=== PATIENT | female | born 1940 | race Hispanic/Latino ===

== ENCOUNTER 2017-10-15 11:59 | Observation (INO) | payer OTHER ==
[2017-10-14 11:57] LABS: BASOPHILS % 0.1 % (0.0-1.0); EOSINOPHILS # (AUTO) 0.2 (0.0-0.4); EOSINOPHILS % 2.4 % (0.0-6.0); HEMATOCRIT 35.5 % (34.2-44.1); HEMOGLOBIN 11.2 g/dL (12.0-16.0); LYMPHOCYTES # (AUTO) 2.3 (1.0-3.2); LYMPHOCYTES % 29.3 % (18.0-39.1); MEAN CORPUSCULAR HEMOGLOBIN 28.9 pg (28-32); MEAN CORPUSCULAR HGB CONC 31.5 g/dL (31-35); MEAN CORPUSCULAR VOLUME 91.5 fL (81-99); MONOCYTES # (AUTO) 0.5 (0.2-0.8); NEUTROPHILS # (AUTO) 4.8 (2.1-6.9); NEUTROPHILS % 61.8 % (38.7-80.0); PLATELET COUNT 208 x10e3/uL (140-360); RED BLOOD COUNT 3.88 x10e6/uL (3.6-5.1); RED CELL DISTRIBUTION WIDTH 16.5 % (11.7-14.4)
[2017-10-14 12:05] LABS: INR 1.02; PROTHROMBIN TIME 13.9 seconds (11.9-14.5)
[2017-10-14 12:14] LABS: ALBUMIN 3.4 g/dL (3.5-5.0); ALBUMIN/GLOBULIN RATIO 0.8 (0.8-2.0); ANION GAP 12.6 mmol/L (8-16); CALCIUM 9.4 mg/dL (8.4-10.2); CHOL/HDL RATIO 3.9 (3.0-3.6); CREATININE, SERUM 1.2 mg/dL (0.57-1.11); POTASSIUM 5.6 mmol/L (3.5-5.1)
[~2017-10-15] VITALS: Ht 144.8 cm; Wt 52.2 kg
[~2017-10-15 11:59] MED LIST: AMIODARONE HCL200 MG PO; AMLODIPINE BESYL5 MG PO; ATORVASTATIN CA20 MG PO; CLOPIDOGREL75 MG PO; FUROSEMIDE40 MG PO; INSULIN ASPART SQ; JANUVIA100 MG PO; LOSARTAN POTASS25 MG PO; METOPROLOL SUCC50 MG PO; ONDANSETRO4 MG/UDTAB PO; PANTOPRAZOLE SO40 MG PO
[2017-10-15] MEDS ORDERED: FENTANYL CITRATE/PF 100MCG/2 ML INJ ONE ×2 (13:19→17:42)
[2017-10-15] MEDS ORDERED: MIDAZOLAM HCL 2 MG/2 ML VIAL ONE (13:20)
[2017-10-15] MEDS ORDERED: IOPAMIDOL 300MG/ML 100 ML INFUS..BTL IV ONE ×2 (13:21→15:17)
[2017-10-15] MEDS ORDERED: LIDOCAINE HCL 2% LOCAL 20 ML VIAL ONE ×2 (13:21→14:30)
[2017-10-15] MEDS ORDERED: HEPARIN SOD/SOD CHLORIDE 2,000 ML ONE (13:21)
[2017-10-15] MEDS ORDERED: SODIUM CHLORIDE 0.9% 1000ML 1,000 ML ONE ×2 (13:22→15:29)
[2017-10-15] MEDS ORDERED: VERAPAMIL HCL 2.5 MG/ML 2 ML VIAL ONE (15:28)
[2017-10-15] MEDS ORDERED: HYDRALAZINE HCL 20 MG/ML VIAL ONE (15:36)
[2017-10-15] MEDS ORDERED: ATROPINE SULFATE 0.1 MG/ML 10ML SYR ONE (17:43)
[2017-10-15 21:06] VITALS: BP 137/59
[2017-10-15] MEDS: SODIUM CHLORIDE 0.9% 1000ML 1,000 ML IV SCH (22:05)
[2017-10-15 23:27] VITALS: BP 152/58
[2017-10-15 23:37] VITALS: BP 137/59
[2017-10-15 23:57] VITALS: BP 137/59
--- NOTE | 2017-10-16 01:16 | Operative Report ---
DATE OF PROCEDURE: October 15, 2017 PERIPHERAL ANGIOGRAM DATE OF : 1940 PROCEDURE INDICATION: Life-limiting severe claudication and known severe peripheral arterial disease. Patient's intervention to left lower extremity. PROCEDURES PERFORMED 1. Selective lower extremity angiography, unilateral to left lower extremity. 2. Third-order catheter placement from right common femoral artery to left common femoral artery for selective angiography. 3. Additional 3rd-order catheter placement from right common femoral artery to left popliteal artery for additional digital substraction angiography to beneficial vessels. 4. Additional 3rd-order catheter placement from right common femoral artery to left distal anterior tibial artery to confirm intraluminal catheter position. 5. Left anterior tibial CSI atherectomy with 1.25 bur. 6. Left anterior tibial percutaneous transluminal angioplasty with a VascuTrak 2.5 x 150 scoring balloon. 7. Left midanterior tibial 2.5 x 38 Synergy drug-eluting stent placement for area of vessel dissection post percutaneous transluminal angioplasty in patient with single-vessel to foot. PROCEDURE COMPLICATIONS: None. ESTIMATED BLOOD LOSS: Less than 50 mL. PROCEDURE SUMMARY: After consent was obtained, patient was prepped and draped in a sterile fashion and the right left femoral site was locally infiltrated with 2% lidocaine. Access was obtained using and an Omni Flush catheter was advanced through the abdominal aorta for engagement of the left iliac vessels. Over a wire, a 6-Angolan SAMANTHA tip Terumo 45-cm sheath was advanced with catheter tip position to left common femoral artery. Angiography to the left lower extremity was performed. A seeker catheter was advanced to the left popliteal artery over wire and additional angiography was performed. It was noted to proceed with intervention of a left anterior tibial chronic total occlusion, which was performed successfully after use of Whisper wire, Roadrunner wire, safety wire, and an 0.018 30-g tip wire used to cross the small segment of prior occlusion. Exchanged for a ViperWire, CSI atherectomy with a 1.25 bur was performed followed by VascuTrak 2.5 x 150 balloon angioplasty followed by stent placement with 2.5 x 38 Synergy stent deployed to 18 atmospheres. Final angiography reveals excellent results with reestablishment of bleeding and flow via the left anterior tibial down to the foot. A ANSHU-3 flow, no flow-limiting dissection, no perforations, and less than 10% residual stenosis approximately treated area. ANGIOGRAPHIC FINDINGS: The left lower extremity demonstrates mild disease less than 30% to the left common femoral artery, left profunda femoris and superficial femoris, as well as left popliteal artery. The left anterior tibial was occluded 100% in the xax-vg-cfbozb portion; however, flow was reestablished with excellent results as described above at the end of this procedure. The left PT trunk is occluded in the distal segment, so is the left peroneal and left posterior tibial arteries 100% throughout. There was some filling of the distal plantar arches via the dorsalis pedis at the end of the procedure; however, no reconstitution of posterior tibial or peroneal is visualized on additional angioplasty attempts. Therefore, curvature of disease optimization has been achieved to left lower extremity via an endovascular approach as much as feasible. CONCLUSION: Successful atherectomy and stent of left anterior tibial with excellent final angiographic results, and reestablishment of single-vessel runoff to left lower extremity. RECOMMENDATIONS: Aspirin, clopidogrel, bedrest, close monitoring for any kinds of bleeding. Job#: [id number] CQ
[2017-10-16 04:00] VITALS: BP 115/54
[2017-10-16 07:16] VITALS: BP 128/52
[2017-10-16] MEDS: SODIUM CHLORIDE 0.9% 1000ML 1,000 ML IV SCH (08:00)
[2017-10-16] MEDS ORDERED: ASPIRIN 325 MG TAB PO SCH (09:00)
[2017-10-16] MEDS ORDERED: SITAGLIPTIN 100 MG TAB PO SCH (09:00)
[2017-10-16] MEDS ORDERED: AMIODARONE HCL 200 MG TAB PO SCH (09:00)
[2017-10-16] MEDS ORDERED: ONDANSETRON HCL 4 MG ORAL DISINTEGRATING TAB PO SCH (09:00)
[2017-10-16] MEDS ORDERED: LOSARTAN POTASSIUM 25 MG TAB PO SCH (09:00)
[2017-10-16] MEDS ORDERED: METOPROLOL SUCCINATE 50 MG TAB XL PO SCH (09:00)
[2017-10-16] MEDS ORDERED: CLOPIDOGREL BISULFATE 75 MG TAB PO SCH ×2 (09:00)
[2017-10-16] MEDS ORDERED: FUROSEMIDE 40 MG TAB PO SCH (09:00)
[2017-10-16] MEDS ORDERED: AMLODIPINE BESYLATE 5 MG TAB PO SCH (09:00)
[2017-10-16] MEDS ORDERED: PANTOPRAZOLE SOD 40 MG TABEC PO SCH (09:00)
[2017-10-16] MEDS ORDERED: ATORVASTATIN 20 MG TAB PO SCH (21:00)
== END 2017-10-16 15:18 | disposition home or self-care (01) ==
LOC: CATH LAB 11:59 → IMCU 20:51
PROVIDERS: ADMIT Internal Medicine Cardiovascular Disease; ATTEND Internal Medicine Cardiovascular Disease
DX: I70.218 Atherosclerosis of native arteries of extremities with intermittent claudication, other extremity (principal); I70.92 Chronic total occlusion of artery of the extremities; I25.118 Atherosclerotic heart disease of native coronary artery with other forms of angina pectoris; I25.2 Old myocardial infarction; I48.0 Paroxysmal atrial fibrillation; Z95.0 Presence of cardiac pacemaker; R06.09 Other forms of dyspnea; E78.5 Hyperlipidemia, unspecified; E11.51 Type 2 diabetes mellitus with diabetic peripheral angiopathy without gangrene; E11.22 Type 2 diabetes mellitus with diabetic chronic kidney disease; I12.9 Hypertensive chronic kidney disease with stage 1 through stage 4 chronic kidney disease, or unspecified chronic kidney disease; N18.9 Chronic kidney disease, unspecified; Z01.810 Encounter for preprocedural cardiovascular examination; Z79.4 Long term (current) use of insulin; Z79.02 Long term (current) use of antithrombotics/antiplatelets
CPT/HCPCS: 36415 ×2; 37231; 80053; 80061; 82948; 85025; 85610; 93005; C1724; C1725; C1769 ×2; C1874; C1887; C9600; G0378 ×2; J0360; J2001; J2250; J7030; Q9967; 36140; 75625; 75630; 77002; 92924

== ENCOUNTER → 2018-12-03 | Day surgery (SDC) | payer OTHER ==
[2018-12-02 15:23] LABS: BASOPHILS % 0.3 % (0.0-1.0); EOSINOPHILS # (AUTO) 0.1 (0.0-0.4); EOSINOPHILS % 1.9 % (0.0-6.0); HEMATOCRIT 39.1 % (34.2-44.1); LYMPHOCYTES # (AUTO) 1.8 (1.0-3.2); LYMPHOCYTES % 25.7 % (18.0-39.1); MEAN CORPUSCULAR HGB CONC 33.2 g/dL (31-35); MEAN CORPUSCULAR VOLUME 90.3 fL (81-99); MONOCYTES # (AUTO) 0.4 (0.2-0.8); MONOCYTES % 5.8 % (4.4-11.3); NEUTROPHILS # (AUTO) 4.6 (2.1-6.9); PLATELET COUNT 239 x10e3/uL (140-360); RED BLOOD COUNT 4.33 x10e6/uL (3.6-5.1); RED CELL DISTRIBUTION WIDTH 12.8 % (11.7-14.4)
[2018-12-02 15:27] LABS: INR 0.92; PROTHROMBIN TIME 13.2 seconds (11.9-14.5)
[~2018-12-03] VITALS: Ht 134.6 cm; Wt 51.3 kg
[~2018-12-03] MED LIST changes: +ASPIRIN81 MG PO; +BENZOCAINE 20% SPR 60 ML CAN ONE; +CO Q-10 100 MG1 EACH PO; +ELIQUIS PO; +LINZESS PO; +MIDAZOLAM HCL 2 MG/2 ML VIAL ONE; +PROPOFOL IV EMULSION 10 MG/ML 20 ML VIAL ONE; +SODIUM CHLORIDE 0.9% 1000ML 1,000 ML ONE
--- OUTSIDE RECORDS SUMMARY | 2018-12-03 10:16 | XMS REPORT ---
Author Author [facility] Address Unknown Phone Unavailable Care Team Providers Care Database Programmer Analyst Name Role Phone Zenon MARTÍNEZ Unavailable Unavailable JAKY [place] Unavailable Unavailable Payers Payer Name Policy Type Policy Number Effective Date Expiration Date Problems This patient has no known problems. Allergies, Adverse Reactions, Alerts Allergy Name Allergy Type Status Severity Reaction(s) Onset Date Inactive Date Treating Clinician Comments No Known Allergies DA Active U 2013-03-04 00:00:00 Medications This patient has no known medications. Results Test Description Test Time Test Comments Text Results Atomic Results Result Comments POCT-GLUCOSE METER 2017-06-24 14:25:00 POC-GLUCOSE METER (BEAKER) (test ospt=4987) 123 mg/dL 70-110 TESTED AT [address] [address] TISSUE [id number] 09:55:00Surgical Pathology Report Case: [id number] Authorizing Provider: Flora Nj MD Collected: 06/13/2017 0923 Ordering Location: [facility] Received: 06/13/2017 1555 PERIOPERATIVE SERVICES Pathologist: Luis Felipe Arndt MD Specimen: Plaque, LEFT CAROTID PLAQUE ARTERY, LEFT CAROTID, ATHERECTOMY:CALCIFIC ATHEROSCLEROTIC PLAQUE Signing Pathologist Direct Phone Line: [phone] signed by Luis Felipe Arndt MD on 06/23/2017 at 9:55 [id number]; [id number] stenosisLeft carotid plaqueIn saline labeled "plaque", description "left carotid plaque" is a 4.0 cm in length x 0.6 cm in diameter mortensen-white to yellow-rock cylindrical previously incised portion of fibrous tissue. Sectioning reveals focal calcification. Credit Administration Specialist sections are submitted in cassette A1 for decalcification. DB/plPerformedBASIC METABOLIC [id number] 05:37:00* Test Item Value Reference Range Comments SODIUM (BEAKER) (test lzdh=344) 136 meq/L 136-145 POTASSIUM (BEAKER) (test uunr=463) 4.2 meq/L 3.5-5.1 CHLORIDE (BEAKER) (test ogoh=163) 107 meq/L 98-107 CO2 (BEAKER) (test ktvh=678) 21 meq/L 22-29 BLOOD UREA NITROGEN (BEAKER) (test zmyo=996) 19 mg/dL 7-21 CREATININE (BEAKER) (test rwyd=837) 0.97 mg/dL 0.57-1.25 GLUCOSE RANDOM (BEAKER) (test iynt=219) 95 mg/dL 70-105 CALCIUM (BEAKER) (test ahrm=420) 7.9 mg/dL 8.4-10.2 EGFR (BEAKER) (test gswi=7883) mL/min/1.73 sq m INSUFFICIENT CLINICAL DATA TO CALCULATE ESTIMATED GFR. [id number] 05:10:00* Test Item Value Reference Range Comments MAGNESIUM (BEAKER) (test ywxj=082) 1.4 mg/dL 1.6-2.6 CBC W/PLT COUNT & AUTO [id number] 04:34:00* Test Item Value Reference Range Comments WHITE BLOOD CELL COUNT (BEAKER) (test unzv=669) 7.4 K/ L 3.5-10.5 RED BLOOD CELL COUNT (BEAKER) (test pquw=318) 2.99 M/ L 3.93-5.22 HEMOGLOBIN (BEAKER) (test urci=423) 7.9 GM/DL 11.2-15.7 HEMATOCRIT (BEAKER) (test unlr=332) 25.4 % 34.1-44.9 MEAN CORPUSCULAR VOLUME (BEAKER) (test qmbk=116) 84.9 fL 79.4-94.8 MEAN CORPUSCULAR HEMOGLOBIN (BEAKER) (test eivk=169) 26.4 pg 25.6-32.2 MEAN CORPUSCULAR HEMOGLOBIN CONC (BEAKER) (test ucjw=187) 31.1 GM/DL 32.2-35.5 RED CELL DISTRIBUTION WIDTH (BEAKER) (test slnx=195) 18.1 % 11.7-14.4 PLATELET COUNT (BEAKER) (test dfqs=169) 191 K/CU MM 150-450 MEAN PLATELET VOLUME (BEAKER) (test oglw=936) 9.6 fL 9.4-12.3 NUCLEATED RED BLOOD CELLS (BEAKER) (test zglm=021) 0 /100 WBC 0-0 NEUTROPHILS RELATIVE PERCENT (BEAKER) (test yuvl=848) 73 % LYMPHOCYTES RELATIVE PERCENT (BEAKER) (test prnm=096) 16 % MONOCYTES RELATIVE PERCENT (BEAKER) (test knox=343) 8 % EOSINOPHILS RELATIVE PERCENT (BEAKER) (test rers=773) 2 % BASOPHILS RELATIVE PERCENT (BEAKER) (test iqdo=198) 0 % NEUTROPHILS ABSOLUTE COUNT (BEAKER) (test xauq=307) 5.43 K/ L 1.56-6.13 LYMPHOCYTES ABSOLUTE COUNT (BEAKER) (test svde=201) 1.21 K/ L 1.18-3.74 MONOCYTES ABSOLUTE COUNT (BEAKER) (test grjj=560) 0.58 K/ L 0.24-0.36 EOSINOPHILS ABSOLUTE COUNT (BEAKER) (test ufvl=418) 0.15 K/ L 0.04-0.36 BASOPHILS ABSOLUTE COUNT (BEAKER) (test ihrf=904) 0.02 K/ L 0.01-0.08 IMMATURE GRANULOCYTES-RELATIVE PERCENT (BEAKER) (test knof=0006) 0 % 0-1 POCT-GLUCOSE [id number] 15:17:00* Test Item Value Reference Range Comments POC-GLUCOSE METER (BEAKER) (test mwor=7429) 132 mg/dL 70-110 TESTED AT [facility] [address] [facility] [address] BASIC METABOLIC [id number] 14:56:00* Test Item Value Reference Range Comments SODIUM (BEAKER) (test zmff=115) 139 meq/L 136-145 POTASSIUM (BEAKER) (test bbae=230) 4.1 meq/L 3.5-5.1 CHLORIDE (BEAKER) (test tcxg=221) 109 meq/L 98-107 CO2 (BEAKER) (test ghfu=611) 24 meq/L 22-29 BLOOD UREA NITROGEN (BEAKER) (test tqct=469) 19 mg/dL 7-21 CREATININE (BEAKER) (test wqfd=591) 1.07 mg/dL 0.57-1.25 GLUCOSE RANDOM (BEAKER) (test cnfe=589) 142 mg/dL 70-105 CALCIUM (BEAKER) (test yeuj=117) 8.2 mg/dL 8.4-10.2 EGFR (BEAKER) (test nfsu=7730) mL/min/1.73 sq m INSUFFICIENT CLINICAL DATA TO CALCULATE ESTIMATED GFR. BLOOD GAS, [id number] 14:34:00* Test Item Value Reference Range Comments PH ARTERIAL (BEAKER) (test fabh=620) 7.38 7.35-7.45 PCO2 ARTERIAL (BEAKER) (test gwco=597) 42 mmHg 35-45 PO2 ARTERIAL (BEAKER) (test ldxs=268) 235 mmHg 80-90 O2 SATURATION ARTERIAL (BEAKER) (test volx=563) 99.5 % 96.0-97.0 HCO3 ARTERIAL (BEAKER) (test jqxw=204) 25 mmol/L 21-29 BASE EXCESS ARTERIAL (BEAKER) (test jmhn=914) -0.6 mmol/L -2.0-3.0 PATIENT TEMPERATURE (BEAKER) (test wndh=4333) 36.2 C FIO2 (BEAKER) (test hfwk=9350) 28.0 % POCT-GLUCOSE [id number] 13:20:00* Test Item Value Reference Range Comments POC-GLUCOSE METER (BEAKER) (test slda=2009) 142 mg/dL 70-110 TESTED AT [facility] [address] [facility] [address] CBC W/PLT COUNT & AUTO [id number] 13:13:00* Test Item Value Reference Range Comments WHITE BLOOD CELL COUNT (BEAKER) (test mrgp=073) 11.1 K/ L 3.5-10.5 RED BLOOD CELL COUNT (BEAKER) (test xlel=527) 3.47 M/ L 3.93-5.22 HEMOGLOBIN (BEAKER) (test elfb=196) 9.1 GM/DL 11.2-15.7 HEMATOCRIT (BEAKER) (test rngz=370) 29.2 % 34.1-44.9 MEAN CORPUSCULAR VOLUME (BEAKER) (test fkju=075) 84.1 fL 79.4-94.8 MEAN CORPUSCULAR HEMOGLOBIN (BEAKER) (test evxz=708) 26.2 pg 25.6-32.2 MEAN CORPUSCULAR HEMOGLOBIN CONC (BEAKER) (test dcib=683) 31.2 GM/DL 32.2-35.5 RED CELL DISTRIBUTION WIDTH (BEAKER) (test bnsu=233) 18.0 % 11.7-14.4 PLATELET COUNT (BEAKER) (test frtx=612) 239 K/CU MM 150-450 MEAN PLATELET VOLUME (BEAKER) (test lcnx=734) 9.3 fL 9.4-12.3 NUCLEATED RED BLOOD CELLS (BEAKER) (test zgzf=971) 0 /100 WBC 0-0 NEUTROPHILS RELATIVE PERCENT (BEAKER) (test vvvd=960) 78 % LYMPHOCYTES RELATIVE PERCENT (BEAKER) (test fwbj=742) 12 % MONOCYTES RELATIVE PERCENT (BEAKER) (test lrcs=841) 7 % EOSINOPHILS RELATIVE PERCENT (BEAKER) (test whqc=783) 2 % BASOPHILS RELATIVE PERCENT (BEAKER) (test nahd=654) 0 % NEUTROPHILS ABSOLUTE COUNT (BEAKER) (test mikh=647) 8.61 K/ L 1.56-6.13 LYMPHOCYTES ABSOLUTE COUNT (BEAKER) (test quxd=334) 1.36 K/ L 1.18-3.74 MONOCYTES ABSOLUTE COUNT (BEAKER) (test cbdy=076) 0.79 K/ L 0.24-0.36 EOSINOPHILS ABSOLUTE COUNT (BEAKER) (test usno=443) 0.26 K/ L 0.04-0.36 BASOPHILS ABSOLUTE COUNT (BEAKER) (test gpbr=213) 0.02 K/ L 0.01-0.08 IMMATURE GRANULOCYTES-RELATIVE PERCENT (BEAKER) (test kpwg=9339) 1 % 0-1 HGB/HCT (H&H) - STAT [id number] 10:56:00* Test Item Value Reference Range Comments HEMOGLOBIN (BEAKER) (test cigu=646) 9.3 GM/DL 12.0-15.0 HEMATOCRIT (BEAKER) (test bhvc=842) 27.0 % 36.0-45.0 [id number] 10:53:00* Test Item Value Reference Range Comments GLUCOSE RANDOM (BEAKER) (test jspq=248) 103 mg/dL 70-110 Effective 09/27/2014: Reference Range Change-Adult onlyNew: 70-105 Previous: 70-110BLOOD GAS, [id number] 09:11:00* Test Item Value Reference Range Comments PH ARTERIAL (BEAKER) (test jkqb=988) 7.42 7.35-7.45 PCO2 ARTERIAL (BEAKER) (test iuqq=037) 37 mmHg 35-45 PO2 ARTERIAL (BEAKER) (test gfkm=864) 516 mmHg 80-90 O2 SATURATION ARTERIAL (BEAKER) (test bjsz=957) 99.9 % 96.0-97.0 HCO3 ARTERIAL (BEAKER) (test udce=379) 24 mmol/L 21-29 BASE EXCESS ARTERIAL (BEAKER) (test hbxg=606) -0.9 mmol/L -2.0-3.0 PATIENT TEMPERATURE (BEAKER) (test lzlq=5797) 35.1 C FIO2 (BEAKER) (test sarp=7296) 100.0 % POTASSIUM-STAT [id number] 09:11:00* Test Item Value Reference Range Comments POTASSIUM (BEAKER) (test jymx=186) 3.4 meq/L 3.6-5.5 HGB/HCT (H&H) - STAT [id number] 09:11:00* Test Item Value Reference Range Comments HEMOGLOBIN (BEAKER) (test xucl=060) 9.7 g/dL 12.0-15.0 HEMATOCRIT (BEAKER) (test rvyq=240) 29.0 % 36.0-45.0 GLUCOSE-STAT [id number] 09:10:00* Test Item Value Reference Range Comments GLUCOSE RANDOM (BEAKER) (test gkur=103) 96 mg/dL 70-110 SODIUM NA-STAT [id number] 09:10:00* Test Item Value Reference Range Comments SODIUM (BEAKER) (test odec=053) 140 meq/L 135-148 POCT-GLUCOSE [id number] 06:53:00* Test Item Value Reference Range Comments POC-GLUCOSE METER (BEAKER) (test haqs=6877) 109 mg/dL 70-110 TESTED AT [facility] [address] [facility] [address] BASIC METABOLIC [id number] 14:43:00* Test Item Value Reference Range Comments SODIUM (BEAKER) (test gyvk=147) 135 meq/L 136-145 POTASSIUM (BEAKER) (test quuj=026) 4.6 meq/L 3.5-5.1 CHLORIDE (BEAKER) (test kgtv=604) 103 meq/L 98-107 CO2 (BEAKER) (test ycyn=939) 24 meq/L 22-29 BLOOD UREA NITROGEN (BEAKER) (test swya=346) 25 mg/dL 7-21 CREATININE (BEAKER) (test pcam=114) 1.33 mg/dL 0.57-1.25 GLUCOSE RANDOM (BEAKER) (test ccju=343) 346 mg/dL 70-105 CALCIUM (BEAKER) (test bfcr=637) 9.4 mg/dL 8.4-10.2 EGFR (BEAKER) (test owei=3320) mL/min/1.73 sq m INSUFFICIENT CLINICAL DATA TO CALCULATE ESTIMATED GFR. CBC W/PLT COUNT & AUTO [id number] 14:39:00* Test Item Value Reference Range Comments WHITE BLOOD CELL COUNT (BEAKER) (test mgtt=491) 10.0 K/ L 4.0-10.0 RED BLOOD CELL COUNT (BEAKER) (test zyci=169) 3.56 M/ L 4.00-5.00 HEMOGLOBIN (BEAKER) (test hozo=747) 9.7 GM/DL 12.0-15.0 HEMATOCRIT (BEAKER) (test twjv=144) 30.8 % 36.0-45.0 MEAN CORPUSCULAR VOLUME (BEAKER) (test tgix=866) 86.5 fL 82.0-99.0 MEAN CORPUSCULAR HEMOGLOBIN (BEAKER) (test twhh=723) 27.3 pg 27.0-33.0 MEAN CORPUSCULAR HEMOGLOBIN CONC (BEAKER) (test krvu=709) 31.6 GM/DL 32.0-36.0 RED CELL DISTRIBUTION WIDTH (BEAKER) (test ijla=142) 15.2 % 10.3-14.2 PLATELET COUNT (BEAKER) (test urgx=692) 343 K/CU MM 150-430 MEAN PLATELET VOLUME (BEAKER) (test pfwf=540) 7.4 fL 6.5-10.5 NUCLEATED RED BLOOD CELLS (BEAKER) (test nsup=340) 0 /100 WBC 0-0 NEUTROPHILS RELATIVE PERCENT (BEAKER) (test fstf=071) 76 % LYMPHOCYTES RELATIVE PERCENT (BEAKER) (test kjtd=420) 14 % MONOCYTES RELATIVE PERCENT (BEAKER) (test zuot=988) 8 % EOSINOPHILS RELATIVE PERCENT (BEAKER) (test kdgq=035) 2 % BASOPHILS RELATIVE PERCENT (BEAKER) (test clln=972) 0 % NEUTROPHILS ABSOLUTE COUNT (BEAKER) (test reuw=045) 7.60 K/ L 1.80-8.00 LYMPHOCYTES ABSOLUTE COUNT (BEAKER) (test pdll=324) 1.44 K/ L 1.48-4.50 MONOCYTES ABSOLUTE COUNT (BEAKER) (test bqsv=932) 0.78 K/ L 0.00-1.30 EOSINOPHILS ABSOLUTE COUNT (BEAKER) (test iakr=993) 0.20 K/ L 0.00-0.50 BASOPHILS ABSOLUTE COUNT (BEAKER) (test terk=185) 0.00 K/ L 0.00-0.20 0.00PROTHROMBIN [id number] 14:30:00* Test Item Value Reference Range Comments PROTIME (BEAKER) (test taot=811) 13.2 seconds 11.7-14.7 INR (BEAKER) (test ooql=246) 1.0 <=5.9 RECOMMENDED COUMADIN/WARFARIN INR THERAPY RANGESSTANDARD DOSE: 2.0 - 3.0 Inclu trevin: PROPHYLAXIS for venous thrombosis, systemic embolization; TREATMENT for julia ous thrombosis and/or pulmonary embolus.HIGH RISK: Target INR is 2.5-3.5 for pat ients with mechanical heart valves.HIP RIGHT 2-3 VW (+/- PELVIS) [place] [id number] Patient Name: MAY LLAMAS MR #: [id number] : 1940 Age/Sex: 76/F Req #: [id number] Adm Physician: Ordered by: BA MARTÍNEZ MD Report #: [id number] Location: [facility] Room/Bed: Procedure: [id number] DX/HIP RIGHT 2-3 VW (+/- PELVIS) Exam Date: Exam Time: REPORT STATUS: Signed PROCEDURE: HIP RIGHT 2-3 VW (+/- PELVIS) COMPARISON: None. I NDICATIONS: RIGHT HIP PAIN FINDINGS: BONES: Generalized osteopeni a. Evaluation of the femoral necks is limited by positioning. Minimal to mild degenerative changes in the right hip joint. SOFT TISSUES: Vascular aaron cifications. OTHER: Negative. CONCLUSION: Generalized osteopenia. No acute abnormalities, within the limitations of the study. Alysha Royal M.D. Dictated by: Alysha Royal M.D. on 07/23/2017 at 18:15 Electronically approved by: Alysha Royal M.D. on 07/23/20 17 at 18:15 Dictated By: ALYSHA ROYAL MD Electronically Sig alexandre By: ALYSHA ROYAL MD on 07/23/17 1816 Transcribed By: GALEN on 07/23/17 18 16 COPY TO: BA MARTÍNEZ MD
--- OUTSIDE RECORDS SUMMARY | 2018-12-03 10:16 | XMS REPORT | Clinical Summary ---
Author Author [facility] Organization [facility] Address Unknown Phone Unavailable Care Team Providers Care Appeals Representative Name Role Phone Beau Reyes PCP Gregory Porter Unavailable Allergies No Known Allergies Medications End Date Status Medication Sig Dispensed Refills Start Date Active furosemide (LASIX) 40 MG Take 40 mg by 0 tablet mouth 2 (two) times daily. Active pantoprazole (PROTONIX) Take 40 mg by 0 40 MG tablet mouth 2 (two) times daily. Active ergocalciferol, vitamin Take 50,000 0 D2, (VITAMIN D2) 25,000 Units by unit Cap mouth once a week Weekly for 12 weeks started on 04/22/17. . Active aspirin 81 MG EC tablet Take 81 mg by 0 mouth daily. Active metoprolol (TOPROL-XL) Take 200 mg 0 200 MG 24 hr tablet by mouth daily. Active hydrOXYzine (ATARAX) 25 Take 25 mg by 0 MG tablet mouth 3 (three) times daily as needed for Itching. Active amiodarone (PACERONE) 200 Take 200 mg 0 MG tablet by mouth 2 (two) times daily. Active AMLODIPINE BESYLATE, 1 tablet by 0 BULK, MISC Miscellaneous route daily. Active clopidogrel (PLAVIX) 75 Take 75 mg by 0 mg tablet mouth daily. Active atorvastatin (LIPITOR) 80 Take 80 mg by 0 MG tablet mouth daily. Active insulin glargine (LANTUS) Inject 10 0 100 unit/mL injection Units subcutaneousl y nightly Use as directed . Active insulin aspart (NOVOLOG) Inject 10 0 100 unit/mL InPn Units subcutaneousl y 3 (three) times daily with meals. Active valACYclovir (VALTREX) Take 1 tablet 7 tablet 0 1000 MG tablet (1,000 mg 7 total) by mouth daily for 7 days. Active Problems Problem Noted Date Carotid stenosis, left 06/13/2017 Essential hypertension 06/13/2017 Acute blood loss anemia 06/13/2017 Hyperglycemia 06/13/2017 Social History Date Tobacco Use Types Packs/Day Years Used Never Smoker Alcohol Use Drinks/Week oz/Week Comments No Sex Assigned at Date Recorded Not on file Industry Job Start Date Occupation Not on file Not on file Not on file Travel End Travel History Travel Start No recent travel history available. Last Filed Vital Signs Not on file Plan of Treatment Health Maintenance Due Date Last Done Comments INFLUENZA VACCINE 08/10/2018 Implants Device Identifier Shelf Expiration Date Model / Serial / Lot Implanted Type Area Manufactur er 03/09/2021 [id number] / [id number] / [id number] Grft [place] Dbl [place] 0.3x3.0in Graft/Patc Left: Arterial GETINGE [id number] - [id number] IND:MAQUET Implanted: Qty: 1 on 06/13/2017 by :REE Israel, Flora Villavicencio MD Procedures Comments Procedure Name Priority Date/Time Associated Diagnosis ARRYTHMIA IMPLANT REPORT 09/03/2018 - SCAN 5:41 PM CDT ARRYTHMIA IMPLANT REPORT 09/03/2018 - SCAN 5:40 PM CDT after 12/02/2017 Results * ARRYTHMIA IMPLANT REPORT - SCAN (09/03/2018 5:41 PM CDT) Only the most recent of 2 results within the time period is included. Narrative Performed At after 12/02/2017 Insurance Payer Benefit Subscriber ID Type Phone Address Plan / Group [facility] xxxxxxxxxxxx HMO/POS [phone] [facility] EXCHANGE Advance Directives For more information, please contact: [facility] [address] [place], [place] [id number] Date Inactivated Comments Code Status Date Activated 06/14/2017 5:08 PM Full Code 06/13/2017 5:43 AM This code status was determined by: Patient
[2018-12-03 13:02] VITALS: BP 86/72
[2018-12-03 13:03] VITALS: BP 96/57
[2018-12-03 13:05] VITALS: BP 100/58
[2018-12-03 14:00] VITALS: BP 101/60
[2018-12-03 14:20] VITALS: BP 101/60
== END | disposition home or self-care (01) ==
LOC: CATH LAB 10:13 → EDSTATUS 11:30
PROVIDERS: ATTEND Internal Medicine
DX: I48.0 Paroxysmal atrial fibrillation (principal); I25.118 Atherosclerotic heart disease of native coronary artery with other forms of angina pectoris; I25.2 Old myocardial infarction; I10 Essential (primary) hypertension; E13.00 Other specified diabetes mellitus with hyperosmolarity without nonketotic hyperglycemic-hyperosmolar coma (NKHHC); Z95.0 Presence of cardiac pacemaker; Z01.812 Encounter for preprocedural laboratory examination; Z79.4 Long term (current) use of insulin; Z79.82 Long term (current) use of aspirin; Z79.02 Long term (current) use of antithrombotics/antiplatelets; Z68.41 Body mass index [BMI] 40.0-44.9, adult; Z86.2 Personal history of diseases of the blood and blood-forming organs and certain disorders involving the immune mechanism; Z82.49 Family history of ischemic heart disease and other diseases of the circulatory system
CPT/HCPCS: 36415 ×2; 82948; 85025; 85610; 93312; 93320; 93325; J2250; J2704; J7030; 93307